=== PATIENT | female | born 1955 | race Caucasian/White ===

== ENCOUNTER → 2016-09-25 | Outpatient (CLI) | payer OTHER ==
[~2016-09-25] MED LIST: ALLE180T33 PO; AMLO2.5T PO; CEVI30CAP PO; CRAN500C2 PO; ELIQ5TAB PO; ISOVUE-370 76% 100ML VIAL (Q9967) As Ordered ONE; MUCI600T34 PO; NEXI40CA PO; OCEA0.654; SING10TA32 PO; TRIA37.5 PO; VITA200015 PO; VITMTA PO
--- NOTE | 2016-09-25 08:53 | REP ---
Chest CT, pulmonary CT angiography, with IV contrast: Comparison is 11/24/2015. On the comparison study there were bilateral central pulmonary emboli extending into the peripheral branches bilaterally. These previous pulmonary emboli have resolved. There are no pulmonary emboli in the central pulmonary arteries or in the lobe or segment branches on the study today. There are no infiltrates, masses or effusions. There is no mediastinal, hilar or axillary lymphadenopathy. The thoracic aorta is unremarkable. Cardiac size is normal. The visualized upper abdominal contents are unremarkable. Impression: Negative CT study of the chest. The previous bilateral pulmonary emboli have resolved. There are no acute infiltrates or effusions. There are no masses. No adenopathy. Signed by Frank Randhawa MD 09/25/2016 08:45 A
== END ==
LOC: M RAD 07:50
PROVIDERS: ATTEND Nurse Practitioner Family
DX: R06.02 Shortness of breath (principal)

== ENCOUNTER → 2016-12-19 | Outpatient (CLI) | payer OTHER ==
[~2016-12-19] MED LIST changes: -ISOVUE-370 76% 100ML VIAL (Q9967) As Ordered ONE; -MUCI600T34 PO; +MUCI600T37 PO
[2016-12-19 16:34] LABS: BASO % 0.8 % (0.0-1.0); EOS # 0.3 K/mm3 (0.0-0.50); LARGE UNSTAINED CELL # 0.1 K/mm3 (0.0-0.4); LARGE UNSTAINED CELL % 1.5 % (0.0-4.0); LYMPH # 1.6 K/mm3 (1.5-4.5); LYMPH % 26.7 % (24.0-44.0); MEAN CORPUSCULAR HEMOGLOBIN 28.5 pg (27.0-33.0); MEAN CORPUSCULAR HGB CONC 32.9 g/dl (32.0-36.5); MEAN CORPUSCULAR VOLUME 86.6 fl (80.0-96.0); MONO # 0.5 K/mm3 (0.0-0.8); MONO % 8.3 % (0.0-5.0); NEUTROPHILS # 3.2 K/mm3 (1.8-7.7); NEUTROPHILS % 56.8 % (36.0-66.0); PLATELET COUNT, AUTOMATED 248 k/mm3 (150-450); RED CELL DISTRIBUTION WIDTH 13.8 % (11.5-14.5); WHITE BLOOD COUNT 5.6 K/mm3 (4.0-10.0)
[2016-12-19 16:40] LABS: ALBUMIN 3.6 GM/DL (3.2-5.2); ALBUMIN/GLOBULIN RATIO 1.03 (1.00-1.93); BILIRUBIN,TOTAL 0.8 MG/DL (0.2-1.0); CALCIUM LEVEL 9.1 MG/DL (8.8-10.2); CREATININE FOR GFR 1.18 MG/DL (0.55-1.02); GLOMERULAR FILTRATION RATE 49.4 (>45); POTASSIUM SERUM 4.3 MEQ/L (3.5-5.1); TOTAL PROTEIN 7.1 GM/DL (6.4-8.2)
[2016-12-19 17:10] LABS: ERYTHROCYTE SEDIMENTATION RATE 25 mm/hr (0-30)
== END ==
LOC: M SMT 10:40
PROVIDERS: ATTEND Internal Medicine Rheumatology
DX: M35.9 Systemic involvement of connective tissue, unspecified (principal); K21.9 Gastro-esophageal reflux disease without esophagitis; M17.0 Bilateral primary osteoarthritis of knee; Z79.899 Other long term (current) drug therapy

== ENCOUNTER 2017-04-08 08:46 | Day surgery (SDC) | payer OTHER ==
[~2017-04-08] VITALS: Ht 165.1 cm; Wt 101.8 kg
[~2017-04-08 08:46] MED LIST changes: +LIDOCAINE 2% INJ 100 MG/5 ML SDV (FOR ANES.) As Ordered ONE; +PROPOFOL 200 MG/20 ML VIAL As Ordered ONE
[2017-04-08] MEDS ORDERED: NS 500 ML IV ONE (09:00)
--- NOTE | 2017-04-08 10:14 | ROOR ---
Patient Name: Mary Lou Delgado Procedure Date: 04/08/2017 10:02 AM Date of : 1955 Age: 61 Room: [facility] Gender: Female Note Status: Finalized Procedure: Upper Endoscopy + Biopsies Indications: Heartburn Providers: Mario Matute MD Referring MD: Santa RAMIRES MD, Avelino Mitchell MD Requesting Provider: Medicines: Monitored Anesthesia Care Complications: No immediate complications. Procedure: Pre-Anesthesia Assessment: - The heart rate, respiratory rate, oxygen saturations, blood pressure, adequacy of pulmonary ventilation, and response to care were monitored throughout the procedure. The Endoscope was introduced through the mouth, and advanced to the second part of duodenum. The upper GI endoscopy was accomplished without difficulty. The patient tolerated the procedure well. Findings: The Z-line was regular and was found 35 cm from the incisors. Multiple biopsies were obtained with cold forceps for evaluation to rule out Whitlock's Esophagus randomly at the gastroesophageal junction. A small hiatal hernia was present. No other significant abnormalities were identified in a careful examination of the stomach. The exam of the duodenum was otherwise normal. Impression: - Z-line regular, 35 cm from the incisors. - Small hiatal hernia. - Multiple biopsies were obtained at the gastroesophageal junction. - The examination was otherwise normal. Recommendation: - Patient has a contact number available for emergencies. The signs and symptoms of potential delayed complications were discussed with the patient. Return to normal activities tomorrow. Written discharge instructions were provided to the patient. - High fiber diet. - Discharge patient to home. - Follow an antireflux regimen. - Continue present medications. - Await pathology results. - Check Portal Online for Path Results.([email or web address] - Telephone GI clinic for pathology results in 1 week. - Return to referring physician. - The findings and recommendations were discussed with the patient's family. Mario Matute MD Mario Matute MD 04/08/2017 10:14:16 AM This report has been signed electronically. Number of Addenda: 0 Note Initiated On: 04/08/2017 10:02 AM Estimated Blood Loss: Estimated blood loss: none.
--- NOTE | 2017-04-08 10:28 | ROOR ---
Patient Name: Mary Lou Delgado Procedure Date: 04/08/2017 10:03 AM Date of : 1955 Age: 61 Room: [id number] Gender: Female Note Status: Finalized Procedure: Total Colonoscopy to Cecum Indications: Screening in patient at increased risk: Colorectal cancer in mother before age 60, Last colonoscopy: 2011 Providers: Mario Matute MD Referring MD: Santa RAMIRES MD Requesting Provider: Avelino Mitchell MD Medicines: Monitored Anesthesia Care Complications: No immediate complications. Procedure: Pre-Anesthesia Assessment: - The heart rate, respiratory rate, oxygen saturations, blood pressure, adequacy of pulmonary ventilation, and response to care were monitored throughout the procedure. The Colonoscope was introduced through the anus and advanced to the cecum, identified by appendiceal orifice and ileocecal valve. The colonoscopy was performed without difficulty. The patient tolerated the procedure well. The quality of the bowel preparation was excellent. Findings: The perianal and digital rectal examinations were normal. Non-bleeding internal hemorrhoids were found during retroflexion. The hemorrhoids were small and Grade I (internal hemorrhoids that do not prolapse). No other significant abnormalities were identified in a careful examination of the remainder of the colon. The exam was otherwise without abnormality on direct and retroflexion views. Impression: - Non-bleeding internal hemorrhoids. - The examination was otherwise normal on direct and retroflexion views. - No specimens collected. - The exam was otherwise normal to the cecum. Recommendation: - Patient has a contact number available for emergencies. The signs and symptoms of potential delayed complications were discussed with the patient. Return to normal activities tomorrow. Written discharge instructions were provided to the patient. - High fiber diet. - Discharge patient to home. - Continue present medications. - Repeat colonoscopy in 5 years for screening purposes. - Return to referring physician. - The findings and recommendations were discussed with the patient's family. Mario Matute MD Mario Matute MD 04/08/2017 10:28:18 AM This report has been signed electronically. Number of Addenda: 0 Note Initiated On: 04/08/2017 10:03 AM Estimated Blood Loss: Estimated blood loss: none.
[2017-04-08 10:58] VITALS: BP 132/73
== END 2017-04-08 11:01 | disposition home or self-care (01) ==
LOC: M OPP 08:46 → EDSTATUS 10:00 → M OPP 11:01
PROVIDERS: ATTEND Internal Medicine Gastroenterology
DX: Z12.11 Encounter for screening for malignant neoplasm of colon (principal); Z80.0 Family history of malignant neoplasm of digestive organs; K64.0 First degree hemorrhoids; R12 Heartburn; K44.9 Diaphragmatic hernia without obstruction or gangrene; K21.9 Gastro-esophageal reflux disease without esophagitis; I12.9 Hypertensive chronic kidney disease with stage 1 through stage 4 chronic kidney disease, or unspecified chronic kidney disease; J45.909 Unspecified asthma, uncomplicated; M19.90 Unspecified osteoarthritis, unspecified site; F32.9 Major depressive disorder, single episode, unspecified; I73.00 Raynaud's syndrome without gangrene; Z78.0 Asymptomatic menopausal state; R06.83 Snoring; N18.9 Chronic kidney disease, unspecified; Z91.018 Allergy to other foods; Z79.899 Other long term (current) drug therapy; Z80.3 Family history of malignant neoplasm of breast; Z83.71 Family history of colonic polyps

== ENCOUNTER → 2018-05-25 | Outpatient (REF) | payer OTHER ==
[2018-05-25 17:27] LABS: LIPASE 98 U/L (73-393)
[2018-05-25 17:27] LABS: AMYLASE 33 U/L (25-115)
== END ==
LOC: M LAB REF 16:49
DX: R10.11 Right upper quadrant pain (principal)
CPT/HCPCS: 82150

== ENCOUNTER → 2018-08-12 | Outpatient (CLI) | payer OTHER ==
[~2018-08-12] MED LIST changes: -AMLO2.5T PO; +AMLO2.5T3 PO; -LIDOCAINE 2% INJ 100 MG/5 ML SDV (FOR ANES.) As Ordered ONE; -PROPOFOL 200 MG/20 ML VIAL As Ordered ONE
--- NOTE | 2018-08-12 17:15 | REP ---
BILIARY SCAN WITH GALLBLADDER EJECTION FRACTION: 08/12/2018. Clinical history: Right upper quadrant pain. Nausea, vomiting and diarrhea. Pain after fatty meal. Technique: The patient received 6.6 mCi technetium 99m mebrofenin with sequential 5-minute images anteriorly for the liver for 1 hour. Thereafter the patient consumed 8 ounces of Ensure just prior to a second set of 60-minute imaging beginning 65 minutes post tracer injection. Region of interest drawn around the gallbladder and ejection fraction calculated by a semi automated method. Findings: Tracer distribution is homogeneous with activity first seen in the gallbladder fossa and common duct and 15 minutes. Progressive increase in activity in the gallbladder fossa and good washout of activity from the liver noted. Activity first seen in the small bowel loops of 55 minutes. Gallbladder ejection fraction is calculated at 28% for 1 hour. Impression: 1. Prompt homogeneous tracer enhancement with normal washout of activity from the liver, prompt and progressive filling of the gallbladder and activity reaching the small bowel by 55 minutes. 2. Gallbladder ejection fraction calculated at 28% for 1 hour. The normal range with this technique is greater than 35% indicating that there is biliary hypokinesia. Electronically Signed by Jayme Marte MD 08/12/2018 07:39 P
== END ==
LOC: M RAD 08:57
PROVIDERS: ATTEND Internal Medicine Gastroenterology
DX: R10.11 Right upper quadrant pain (principal)
CPT/HCPCS: 78227; A9537; J2805

== ENCOUNTER → 2018-11-12 | Outpatient (REF) | payer OTHER ==
[2018-11-12 14:33] LABS: BASO # 0.1 10^3/uL (0.0-0.2); BASO % 1.2 % (0.0-1.0); EOS # 0.4 10^3/uL (0.0-0.50); EOS % 6.7 % (0.0-3.0); HEMATOCRIT 40.2 % (36.0-47.0); HEMOGLOBIN 12.6 g/dl (12.0-15.5); LYMPH # 1.3 10^3/uL (1.5-4.5); LYMPH % 25.2 % (24.0-44.0); MEAN CORPUSCULAR HGB CONC 31.3 g/dl (32.0-36.5); MEAN CORPUSCULAR VOLUME 86.1 fl (80.0-96.0); MONO # 0.6 10^3/uL (0.0-0.8); MONO % 11.2 % (0.0-5.0); NEUTROPHILS # 2.9 10^3/uL (1.8-7.7); NEUTROPHILS % 55.5 % (36.0-66.0); PLATELET COUNT, AUTOMATED 307 10^3/uL (150-450); RED BLOOD COUNT 4.67 10^6/uL (4.00-5.40); WHITE BLOOD COUNT 5.2 10^3/uL (4.0-10.0)
== END ==
LOC: M LAB REF 14:11
PROVIDERS: ATTEND Internal Medicine Nephrology
DX: N18.3 Chronic kidney disease, stage 3 (moderate) (principal)

== ENCOUNTER 2019-02-15 23:14 | Emergency (ER) | payer OTHER ==
[~2019-02-15] VITALS: Ht 165.1 cm; Wt 90.0 kg
[2019-02-15] MEDS ORDERED: ASPIRIN 81 MG CHEW TABLET PO ONE (23:45)
[2019-02-15] MEDS ORDERED: GI COCKTAIL 50ML BTL(HYOSCYAMINE/MAALOX/LIDOCAINE VISCOUS)(1:3:1) PO ONE (23:45)
[2019-02-15] MEDS ORDERED: NS 500 ML IV ONE (23:45)
[2019-02-16 00:23] LABS: BASO # 0.1 10^3/uL (0.0-0.2); EOS # 0.5 10^3/uL (0.0-0.50); EOS % 6.6 % (0.0-3.0); HEMATOCRIT 38.3 % (36.0-47.0); HEMOGLOBIN 12.3 g/dl (12.0-15.5); LYMPH # 1.9 10^3/uL (1.5-4.5); LYMPH % 26.8 % (24.0-44.0); MEAN CORPUSCULAR HEMOGLOBIN 27.6 pg (27.0-33.0); MEAN CORPUSCULAR HGB CONC 32.1 g/dl (32.0-36.5); MEAN CORPUSCULAR VOLUME 86.1 fl (80.0-96.0); MONO # 0.8 10^3/uL (0.0-0.8); MONO % 10.8 % (0.0-5.0); NEUTROPHILS # 3.8 10^3/uL (1.8-7.7); NEUTROPHILS % 54.5 % (36.0-66.0); PLATELET COUNT, AUTOMATED 270 10^3/uL (150-450); RED BLOOD COUNT 4.45 10^6/uL (4.00-5.40); WHITE BLOOD COUNT 6.9 10^3/uL (4.0-10.0)
[2019-02-16 00:27] LABS: INR 1.34; PROTHROMBIN TIME 16.3 SECONDS (11.8-14.0)
[2019-02-16 00:28] LABS: PARTIAL THROMBOPLASTIN TIME 33.9 SECONDS (25.0-38.4)
[2019-02-16 00:43] LABS: BLOOD UREA NITROGEN 21 MG/DL (7-18); CALCIUM LEVEL 8.9 MG/DL (8.8-10.2); CARBON DIOXIDE LEVEL 26 MEQ/L (21-32); CHLORIDE LEVEL 110 MEQ/L (98-107); CK-MB VALUE MASS < 1.0 NG/ML (<3.6); CPK CREATINE PHOSPHOKINASE 94 U/L (26-192); CREATININE FOR GFR 1.01 MG/DL (0.55-1.30); GLOMERULAR FILTRATION RATE 58.7 (>45); GLUCOSE, FASTING 102 MG/DL (70-100); MB/CK RELATIVE INDEX 1.06 (< OR =4); POTASSIUM SERUM 4.1 MEQ/L (3.5-5.1); SODIUM LEVEL 143 MEQ/L (136-145); TROPONIN I < 0.02 NG/ML (< 0.10)
[2019-02-16 02:19] VITALS: BP 127/66
--- NOTE | 2019-02-16 05:43 | ECGEPIP ---
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
--- NOTE | 2019-02-16 11:56 | REP ---
Clinical: Acute chest pain . Comparison: 05/13/2016 . Findings: The mediastinum and cardiac silhouette are stable and within normal limits for portable technique. The lung rubio are clear without acute consolidation, effusion, or pneumothorax. Skeletal structures are intact. Impression: No acute cardiopulmonary process appreciated. Electronically Signed by hBanu Tomlinson MD 02/16/2019 02:07 A
== END 2019-02-16 02:25 | disposition home or self-care (01) ==
LOC: M ED 23:14
DX: K21.9 Gastro-esophageal reflux disease without esophagitis (principal); K92.9 Disease of digestive system, unspecified; N18.3 Chronic kidney disease, stage 3 (moderate); Z86.711 Personal history of pulmonary embolism; Z88.2 Allergy status to sulfonamides; Z91.018 Allergy to other foods; Z79.899 Other long term (current) drug therapy; Z79.01 Long term (current) use of anticoagulants

== ENCOUNTER → 2019-05-23 | Outpatient (REF) | payer OTHER ==
[2019-05-23 14:16] LABS: PERCENT SATURATION 4.9 % (13.2-45.0)
[2019-05-23 14:26] LABS: FOLATE 6.3 NG/ML
== END ==
LOC: M LAB REF 13:28
PROVIDERS: ATTEND Internal Medicine Nephrology
DX: D64.9 Anemia, unspecified (principal)

== ENCOUNTER 2020-09-12 01:44 | Emergency (ER) | payer OTHER ==
[~2020-09-12] VITALS: Ht 165.1 cm; Wt 103.1 kg
[2020-09-12 03:47] LABS: BASO # 0.1 10^3/uL (0.0-0.2); BASO % 0.6 % (0.0-1.0); EOS % 10.6 % (0.0-3.0); HEMATOCRIT 41.3 % (36.0-47.0); HEMOGLOBIN 13.5 g/dl (12.0-15.5); LYMPH # 2.5 10^3/uL (1.5-5.0); LYMPH % 26.5 % (24.0-44.0); MEAN CORPUSCULAR HEMOGLOBIN 29.3 pg (27.0-33.0); MEAN CORPUSCULAR HGB CONC 32.7 g/dl (32.0-36.5); MEAN CORPUSCULAR VOLUME 89.8 fl (80.0-96.0); MONO % 10.5 % (2.0-8.0); NEUTROPHILS # 4.8 10^3/uL (1.5-8.5); NEUTROPHILS % 51.5 % (36.0-66.0); PLATELET COUNT, AUTOMATED 324 10^3/uL (150-450); WHITE BLOOD COUNT 9.4 10^3/uL (4.0-10.0)
[2020-09-12 03:48] LABS: CALCIUM LEVEL 8.6 MG/DL (8.8-10.2); CREATININE FOR GFR 1.04 MG/DL (0.55-1.30); GLOMERULAR FILTRATION RATE 56.4 (>45); POTASSIUM SERUM 3.7 MEQ/L (3.5-5.1)
[2020-09-12] MEDS ORDERED: ASPIRIN 81 MG CHEW TABLET PO ONE (03:50)
[2020-09-12 04:25] LABS: CK-MB VALUE MASS 1.9 NG/ML (<3.6); MB/CK RELATIVE INDEX 1.67 (< OR =4)
--- NOTE | 2020-09-12 04:50 | REPVR ---
PROCEDURE INFORMATION: Exam: XR Chest Exam date and time: 09/12/2020 3:43 AM Age: 65 years old Clinical indication: Chest pain; Type not specified TECHNIQUE: Imaging protocol: XR of the chest Views: 1 view. COMPARISON: CR PORTABLE CHEST X-RAY 02/15/2019 11:49 PM FINDINGS: Lungs: Unremarkable. No consolidation. Pleural spaces: Unremarkable. No pleural effusion. No pneumothorax. Heart/Mediastinum: Unremarkable. No cardiomegaly. Bones/joints: Unremarkable. IMPRESSION: No acute findings. A Electronically signed by: Bubba Alvarado On 09/12/2020 04:49:47 AM
[2020-09-12 06:31] VITALS: BP 149/70
--- NOTE | 2020-09-12 08:05 | ECGEPIP ---
[facility] - ED Test Date: 2020-09-12 Pat Name: IAN PARKS Department: Room: - Gender: Female Director Building: [place] : 1955 Requested By: BRIT Seaman Order Number: [id number] Reading MD: Vinayak Garay Measurements Intervals [place] Rate: 73 P: 65 SD: 144 QRS: 14 QRSD: 74 T: 39 QT: 426 QTc: 469 Interpretive Statements Normal sinus rhythm with sinus arrhythmia POOR R WAVE PROGRESSION SIMILAR TO 02/15/19 Electronically Signed on 09-12-2020 8:04:58 EDT by Vinayak Garay
--- NOTE | 2020-09-12 08:08 | ECGEPIP ---
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
== END 2020-09-12 06:56 | disposition home or self-care (01) ==
LOC: M ED 01:44
DX: R07.9 Chest pain, unspecified (principal); I25.10 Atherosclerotic heart disease of native coronary artery without angina pectoris; Z79.899 Other long term (current) drug therapy; Z79.01 Long term (current) use of anticoagulants; Z88.2 Allergy status to sulfonamides; Z88.8 Allergy status to other drugs, medicaments and biological substances; Z91.018 Allergy to other foods

== ENCOUNTER → 2021-05-10 | Outpatient (CLI) | payer MEDICARE, OTHER ==
--- NOTE | 2021-05-10 14:22 | REPMRS ---
Patient History The patient states she had a clinical breast exam in February 2021. Patient is postmenopausal and is nulliparous. Family history of breast cancer at age 45 and colorectal cancer at age 53 in mother, breast cancer at age 45 in maternal aunt, breast cancer at age 70 in maternal aunt, colorectal cancer at age 72 in maternal aunt, colorectal cancer at age 77 in sister. Benign excisional biopsy of the left breast, 1994. Took hormonal contraceptives for 2 years. Patient states no breast complaints today. Patient has signed MRS History Sheet. Digital Woman Screen Mammo: May 10, 2021 - Exam #: [id number] Bilateral CC and MLO view(s) were taken. Technologist: Karlee Lincoln, Technologist Prior study comparison: April 18, 2014, bilateral bilat screen digital mammo, performed at [facility] ([facility]). April 15, 2013, bilateral bilat screen digital mammo, performed at [facility] ([facility]). FINDINGS: There are scattered fibroglandular densities. Screening. Digital screening (2D) mammography was performed bilaterally in the CC and MLO projections. Additionally, breast tomosynthesis (3D mammography) was performed bilaterally in the CC and MLO projections. Todays exam was compared to the prior exam/exams. By history, the patient has no complaints of a palpable breast abnormality or other significant breast complaints. The Volpara volumetric breast density category is B, there are scattered areas of fibroglandular densities. The breasts are unchanged in size and shape. There are no dameon-soft tissue densities or spiculated masses. There is no internal architectural distortion. There are no suspicious dameon-calcific clusters. Skin thickening or nipple retraction is not present. IMPRESSION: BI-RADS Category 2- Benign Findings. There is no evidence of malignant alteration of the breasts. Followup examination recommended in one year. The lifetime Tyrer-Cuzick score is 19.4% This mammogram was read with the assistance of [employer],an FDA approved computer aided detection system for mammography. Negative x-ray reports should not delay surgical consultation if a dominant or clinically suspicious mass is present. Not all breast cancers can be identified by mammography. Therefore, we recommend that you continue to perform regular breast self-examination and physical examination and then promptly contact your physician of any concerns or changes. Adenosis and dense breasts may obscure an underlying neoplasm. No significant changes when compared with prior studies. Assessment: BI-RADS/ACR category 2 mammogram. Benign Findings. Recommendation Routine screening mammogram of both breasts in 1 year. Electronically Signed By: Leland Pan MD 05/10/21 [id number]
--- NOTE | 2021-05-13 14:57 | DEXAMM ---
INDICATION: SCREENING FOR OSTEOPOROSIS. COMPARISON: 02/02/2018, 03/15/2008. TECHNIQUE: Bone density was measured using dual-energy x-ray absorptiometry (DEXA). FINDINGS: AP SPINE L1-L4 BMD 1.088 g/cm2 Young Adult T-Score -0.9 Age Matched Z-Score 0.8. LT FEMUR, TOTAL BMD 0.789 g/cm2 Young Adult T-Score -1.7 Age Matched Z-Score -0.4. LT NECK BMD 0.762 g/cm2 Young Adult T-Score -2.0 Age Matched Z-Score -0.4. RT FEMUR, TOTAL BMD 0.770 g/cm2 Young Adult T-Score -1.9 Age Matched Z-Score -0.6. RT NECK BMD 0.818 g/cm2 Young Adult T-Score -1.6 Age Matched Z-Score 0.0. IMPRESSION: There is normal bone density of the spine. There is low bone density of the left hip. There is low bone density of the right hip. The density of the spine has increased 2.0% since the initial exam on 03/15/2008. The density of the spine increased 2.8% since most recent exam on 02/02/2018. The density of the left hip has decreased 15.5% since initial exam on 03/15/2008. The density of the left hip has decreased 3.8% since most recent exam on 02/02/2018. The density of the right hip has decreased 16.3% since the initial exam on 03/15/2008. The density of the right hip has decreased 4.5% since the most recent exam on 02/02/2018. FOLLOW-UP: Recommendation for the next bone density exam: 2 years. <Electronically signed by Frank Reyes > 05/13/21 [id number]
== END ==
LOC: M WHC 12:24
PROVIDERS: ATTEND Registered Nurse
DX: Z12.31 Encounter for screening mammogram for malignant neoplasm of breast (principal); Z13.820 Encounter for screening for osteoporosis; Z78.0 Asymptomatic menopausal state; Z80.3 Family history of malignant neoplasm of breast; M85.89 Other specified disorders of bone density and structure, multiple sites

== ENCOUNTER → 2021-05-23 | Outpatient (REF) | payer MEDICARE, OTHER | LOC: M LAB REF 13:42 | PROVIDERS: ATTEND Nurse Practitioner Family | DX: E83.42 Hypomagnesemia (principal) ==

== ENCOUNTER → 2021-08-13 | Outpatient (CLI) | payer MEDICARE, OTHER | LOC: M RAD 09:39 | PROVIDERS: ATTEND Surgery | DX: R10.11 Right upper quadrant pain (principal) ==

== ENCOUNTER → 2021-09-13 | Outpatient (CLI) | payer MEDICARE, OTHER | LOC: M RAD 13:07 | PROVIDERS: ATTEND Registered Nurse | DX: R05.9 Cough, unspecified (principal) ==

== ENCOUNTER → 2021-12-02 | Outpatient (CLI) | payer MEDICARE, OTHER ==
[~2021-12-02] MED LIST changes: +PROHANCE 279.3MG/ML 5ML VIAL As Ordered ONE
== END ==
LOC: M RAD 12:46
PROVIDERS: ATTEND Registered Nurse
DX: Z80.3 Family history of malignant neoplasm of breast (principal)
CPT/HCPCS: A9576; C8908

== ENCOUNTER → 2022-06-04 | Outpatient (CLI) | payer MEDICARE, OTHER ==
[~2022-06-04] MED LIST changes: +CEVI30CA6 PO; -CEVI30CAP PO; -PROHANCE 279.3MG/ML 5ML VIAL As Ordered ONE
== END ==
LOC: M WHC 15:56
PROVIDERS: ATTEND Registered Nurse
DX: Z12.31 Encounter for screening mammogram for malignant neoplasm of breast (principal)

== ENCOUNTER → 2022-07-30 | Outpatient (CLI) | payer MEDICARE, OTHER ==
[~2022-07-30] MED LIST changes: +ALBU8.5H; +AMLO1TAB24; +ARNU1INH; +AZEL23SP; +CVS500CA5 PO; +ESOM40CA35; +FAMO10TA53 PO; +FERR32TA; +MONT10TA97; +MUCI600T31 PO; +SLOWTAB2 PO; +STEL90IN; +VITA100093 PO
== END ==
LOC: M LABSMTC 09:31
PROVIDERS: ATTEND Anesthesiology
DX: Z01.812 Encounter for preprocedural laboratory examination (principal); Z11.52 Encounter for screening for COVID-19

== ENCOUNTER 2022-08-04 07:00 | Day surgery (SDC) | payer MEDICARE, OTHER ==
[~2022-08-04] VITALS: Ht 165.1 cm; Wt 98.8 kg
[~2022-08-04 07:00] MED LIST changes: +NS 1,000 ML IV ONE
[2022-08-04] MEDS ORDERED: LIDOCAINE 2% 100MG/5ML SDV (FOR ANES.) As Ordered ONE (07:02)
[2022-08-04] MEDS ORDERED: propofoL 200 MG/20 ML VIAL As Ordered ONE ×2 (07:02→07:39)
[2022-08-04 08:20] VITALS: BP 133/65
== END 2022-08-04 08:31 | disposition home or self-care (01) ==
LOC: M OPP 07:00
PROVIDERS: ATTEND Internal Medicine Gastroenterology
DX: Z12.11 Encounter for screening for malignant neoplasm of colon (principal); Z86.010 Personal history of colon polyps; Z80.0 Family history of malignant neoplasm of digestive organs; K63.5 Polyp of colon; K64.0 First degree hemorrhoids; K57.30 Diverticulosis of large intestine without perforation or abscess without bleeding; K31.89 Other diseases of stomach and duodenum; K29.50 Unspecified chronic gastritis without bleeding; I73.00 Raynaud's syndrome without gangrene; J45.909 Unspecified asthma, uncomplicated; N18.9 Chronic kidney disease, unspecified; Z79.899 Other long term (current) drug therapy; Z88.1 Allergy status to other antibiotic agents; Z88.2 Allergy status to sulfonamides; Z91.018 Allergy to other foods; Z86.711 Personal history of pulmonary embolism

== ENCOUNTER → 2022-09-11 | Outpatient (CLI) | payer MEDICARE, OTHER ==
[~2022-09-11] MED LIST changes: +MONT-5 PO; -NS 1,000 ML IV ONE; -SING10TA32 PO
== END ==
LOC: M RAD 15:41
PROVIDERS: ATTEND Physician Assistant
DX: R06.02 Shortness of breath (principal)

== ENCOUNTER → 2022-12-09 | Outpatient (CLI) | payer MEDICARE, OTHER ==
[~2022-12-09] MED LIST changes: +PROHANCE 279.3MG/ML 5ML VIAL ONE
== END ==
LOC: M PLAIMG 12:12
PROVIDERS: ATTEND Internal Medicine
DX: D24.2 Benign neoplasm of left breast (principal); Z80.3 Family history of malignant neoplasm of breast
CPT/HCPCS: A9576; C8908

== ENCOUNTER → 2023-06-08 | Outpatient (CLI) | payer MEDICARE, OTHER ==
[~2023-06-08] MED LIST changes: -PROHANCE 279.3MG/ML 5ML VIAL ONE
== END ==
LOC: M WHC 12:38
PROVIDERS: ATTEND Internal Medicine
DX: Z12.31 Encounter for screening mammogram for malignant neoplasm of breast (principal); M85.851 Other specified disorders of bone density and structure, right thigh

== ENCOUNTER → 2023-06-29 | Outpatient (REF) | payer MEDICARE, OTHER ==
[2023-06-29 19:29] LABS: FERRITIN 7.2 NG/ML (7.3-270.7)
== END ==
LOC: M LAB REF 16:31
PROVIDERS: ATTEND Internal Medicine
DX: N18.30 Chronic kidney disease, stage 3 unspecified (principal); M85.80 Other specified disorders of bone density and structure, unspecified site

== ENCOUNTER → 2023-07-22 | Outpatient (CLI) | payer MEDICARE, OTHER | LOC: M PLAIMG 10:45 | PROVIDERS: ATTEND Otolaryngology | DX: J32.9 Chronic sinusitis, unspecified (principal) ==

== ENCOUNTER → 2023-10-02 | Outpatient (REF) | payer MEDICARE, OTHER | LOC: M LAB REF 16:44 | PROVIDERS: ATTEND Internal Medicine | DX: D50.9 Iron deficiency anemia, unspecified (principal) ==

== ENCOUNTER → 2023-11-24 | Outpatient (REF) | payer MEDICARE, OTHER ==
[~2023-11-24] MED LIST changes: +CRAN500C11 PO; -CVS500CA5 PO
[2023-11-24 19:24] LABS: PERCENT SATURATION 12.5 % (13.2-45.0)
== END ==
LOC: M LAB REF 17:48
PROVIDERS: ATTEND Nurse Practitioner Family
DX: D50.9 Iron deficiency anemia, unspecified (principal)

== ENCOUNTER → 2023-12-11 | Outpatient (CLI) | payer MEDICARE, OTHER | LOC: M RAD 08:57 | PROVIDERS: ATTEND Internal Medicine | DX: M85.88 Other specified disorders of bone density and structure, other site (principal); M51.36 Other intervertebral disc degeneration, lumbar region ==

== ENCOUNTER → 2024-03-15 | Outpatient (REF) | payer MEDICARE, OTHER | LOC: M LAB REF 13:03 | PROVIDERS: ATTEND Internal Medicine | DX: N18.30 Chronic kidney disease, stage 3 unspecified (principal); D50.9 Iron deficiency anemia, unspecified ==

== ENCOUNTER → 2024-04-13 | Outpatient (CLI) | payer MEDICARE, OTHER ==
[~2024-04-13] MED LIST changes: -CRAN500C11 PO; +CVS500CA5 PO; +E-Z-GAS II EFFERVESCENT PACKET (SODIUM BICARB./CITRIC ACID/SIMETHICONE) As Ordered ONE; +E-Z-HD 98% w/w 340GM SUSP BTL As Ordered ONE; +E-Z-PAQUE 96% w/w SUSP 176GM BTL As Ordered ONE
== END ==
LOC: M RAD 09:09
PROVIDERS: ATTEND Internal Medicine
DX: R13.10 Dysphagia, unspecified (principal); Q40.8 Other specified congenital malformations of upper alimentary tract; K21.9 Gastro-esophageal reflux disease without esophagitis

== ENCOUNTER → 2024-06-10 | Outpatient (CLI) | payer MEDICARE, OTHER ==
[~2024-06-10] MED LIST changes: -E-Z-GAS II EFFERVESCENT PACKET (SODIUM BICARB./CITRIC ACID/SIMETHICONE) As Ordered ONE; -E-Z-HD 98% w/w 340GM SUSP BTL As Ordered ONE; -E-Z-PAQUE 96% w/w SUSP 176GM BTL As Ordered ONE
== END ==
LOC: M WHC 12:52
PROVIDERS: ATTEND Internal Medicine
DX: Z12.31 Encounter for screening mammogram for malignant neoplasm of breast (principal); R92.323 Mammographic fibroglandular density, bilateral breasts

== ENCOUNTER → 2024-09-16 | Outpatient (REF) | payer MEDICARE, OTHER ==
[2024-09-16 15:19] LABS: C REACTIVE PROTEIN QUANTITATIV 2.98 MG/DL (<1.0); RHEUMATOID FACTOR QUANT < 3.5 IU/ML (<14)
[2024-09-16 15:21] LABS: URIC ACID 6.6 MG/DL (3.1-7.8)
[2024-09-19 14:36] LABS: SSA SJOGRENS A <1.0 NEG AI (<1.0 NEG); SSB SJOGRENS B <1.0 NEG AI (<1.0 NEG)
[2024-09-20 07:19] LABS: ANA PATTERN Nuclear, Centromere (NEGATIVE); ANA SCREEN, IFA POSITIVE (NEGATIVE); ANA TITER > OR = 1:1280 titer (<1:40)
== END ==
LOC: M LAB REF 14:34
PROVIDERS: ATTEND Internal Medicine
DX: I73.00 Raynaud's syndrome without gangrene (principal)

== ENCOUNTER → 2024-10-19 | Outpatient (CLI) | payer MEDICARE, OTHER | LOC: M RAD 11:42 | PROVIDERS: ATTEND Nurse Practitioner Family | DX: N18.31 Chronic kidney disease, stage 3a (principal) ==

== ENCOUNTER → 2025-03-30 | Outpatient (REF) | payer MEDICARE, OTHER ==
[~2025-03-30] MED LIST changes: +SLOW1TAB3 PO; -SLOWTAB2 PO
[2025-03-30 18:03] LABS: COMPLEMENT C4 36.9 MG/DL (12-36)
[2025-03-30 18:04] LABS: ALT/SGPT 27.0 U/L (7.0-40); AST/SGOT 25.0 U/L (<34); C REACTIVE PROTEIN QUANTITATIV 1.88 MG/DL (<1.0); CALCIUM LEVEL 9.4 MG/DL (8.3-10.6); CARBON DIOXIDE LEVEL 25.0 MMOL/L (20-31); CHLORIDE LEVEL 108.0 MMOL/L (98-107); CREATININE FOR GFR 0.97 MG/DL (0.55-1.30); GLOMERULAR FILTRATION RATE 62.9 (>39); POTASSIUM SERUM 4.0 MMOL/L (3.5-5.1); SODIUM LEVEL 142.0 MMOL/L (136-145)
[2025-03-30 18:18] LABS: BASO # 0.1 10^3/uL (0.0-0.2); BASO % 0.8 % (0.0-1.0); EOS # 0.6 10^3/uL (0.0-0.5); EOS % 7.2 % (0.0-3.0); LYMPH # 2.3 10^3/uL (1.5-5.0); LYMPH % 26.0 % (24.0-44.0); MONO # 0.7 10^3/uL (0.0-0.8); MONO % 7.6 % (2.0-8.0); NEUTROPHILS # 5.2 10^3/uL (1.5-8.5); NEUTROPHILS % 58.2 % (36.0-66.0); PLATELET COUNT, AUTOMATED 320 10^3/uL (150-450)
[2025-03-30 18:18] LABS: TOTAL PROTEIN,RANDOM URINE 11.4 MG/DL (0.0-14.0)
[2025-03-30 18:34] LABS: APPEARANCE, URINE CLOUDY (CLEAR); BACTERIA, URINE AUTO NEGATIVE (NEGATIVE); BILIRUBIN, URINE AUTO NEGATIVE (NEGATIVE); BLOOD, URINE BLOOD NEGATIVE (NEGATIVE); GLUCOSE, URINE (UA) AUTO NEGATIVE (NEGATIVE); KETONE, URINE AUTO NEGATIVE (NEGATIVE); LEUKOCYTE ESTERASE, URINE AUTO NEGATIVE (NEGATIVE); MUCUS, URINE SMALL (NEGATIVE); NITRITE, URINE AUTO NEGATIVE (NEGATIVE); PROTEIN, URINE AUTO NEGATIVE (NEGATIVE); RBC, URINE AUTO 0 /HPF (0-3); SPECIFIC GRAVITY URINE AUTO 1.016 (1.002-1.035); SQUAMOUS EPITHELIAL CELL UR AU 0 /HPF (0-6); UROBILINOGEN, URINE AUTO 0.2 mg/dL (0.0-2.0); WBC, URINE AUTO 1 /HPF (0-3)
[2025-03-30 18:53] LABS: ERYTHROCYTE SEDIMENTATION RATE 54 mm/hr (0-30)
== END ==
LOC: M SFHCRHEU 14:36
PROVIDERS: ATTEND Internal Medicine Rheumatology
DX: R76.89 Other specified abnormal immunological findings in serum (principal); I73.00 Raynaud's syndrome without gangrene; M35.00 Sjogren syndrome, unspecified; R21 Rash and other nonspecific skin eruption; R05.3 Chronic cough; R52 Pain, unspecified

== ENCOUNTER → 2025-03-31 | Outpatient (CLI) | payer MEDICARE, OTHER | LOC: M RAD 10:47 | PROVIDERS: ATTEND Internal Medicine | DX: R10.11 Right upper quadrant pain (principal) ==

== ENCOUNTER → 2025-03-31 | Outpatient (CLI) | payer MEDICARE, OTHER | LOC: M RAD 10:49 | PROVIDERS: ATTEND Internal Medicine Rheumatology | DX: I73.00 Raynaud's syndrome without gangrene (principal); R21 Rash and other nonspecific skin eruption; R05.3 Chronic cough; R76.89 Other specified abnormal immunological findings in serum; M35.00 Sjogren syndrome, unspecified; M85.841 Other specified disorders of bone density and structure, right hand; M85.842 Other specified disorders of bone density and structure, left hand; R10.11 Right upper quadrant pain ==

== ENCOUNTER 2025-05-23 13:15 | Emergency (ER) | payer MEDICARE, OTHER ==
[~2025-05-23] VITALS: Ht 165.1 cm; Wt 107.4 kg
[2025-05-23] MEDS ORDERED: ISOVUE-370 76% 100 ML VIAL As Ordered ONE (14:29)
[2025-05-23 14:32] LABS: BASO # 0.1 10^3/uL (0.0-0.2); BASO % 0.7 % (0.0-1.0); EOS # 0.6 10^3/uL (0.0-0.5); EOS % 6.4 % (0.0-3.0); LYMPH # 1.7 10^3/uL (1.5-5.0); LYMPH % 17.8 % (24.0-44.0); MONO # 0.8 10^3/uL (0.0-0.8); MONO % 8.2 % (2.0-8.0); NEUTROPHILS # 6.5 10^3/uL (1.5-8.5); NEUTROPHILS % 66.3 % (36.0-66.0); PLATELET COUNT, AUTOMATED 273 10^3/uL (150-450)
[2025-05-23 14:57] LABS: CALCIUM LEVEL 9.1 MG/DL (8.3-10.6); CARBON DIOXIDE LEVEL 24.0 MMOL/L (20-31); CHLORIDE LEVEL 108.0 MMOL/L (98-107); CREATININE FOR GFR 0.92 MG/DL (0.55-1.30); GLOMERULAR FILTRATION RATE 67.0 (>39); POTASSIUM SERUM 4.2 MMOL/L (3.5-5.1); SODIUM LEVEL 144.0 MMOL/L (136-145)
[2025-05-23 15:15] LABS: INR 1.43
[2025-05-23 16:15] VITALS: O2SAT 98
[2025-05-23 16:31] VITALS: BP 155/73; TEMP 98.2
== END 2025-05-23 16:38 | disposition home or self-care (01) ==
LOC: M ED 13:15
DX: S09.90XA Unspecified injury of head, initial encounter (principal); S40.012A Contusion of left shoulder, initial encounter; W11.XXXA Fall on and from ladder, initial encounter; Y92.9 Unspecified place or not applicable; Y93.89 Activity, other specified; Y99.9 Unspecified external cause status; K21.9 Gastro-esophageal reflux disease without esophagitis; J45.909 Unspecified asthma, uncomplicated; I10 Essential (primary) hypertension; L40.9 Psoriasis, unspecified; I73.00 Raynaud's syndrome without gangrene; M48.00 Spinal stenosis, site unspecified; Z86.711 Personal history of pulmonary embolism; M43.16 Spondylolisthesis, lumbar region; M43.12 Spondylolisthesis, cervical region; Z79.899 Other long term (current) drug therapy; Z88.2 Allergy status to sulfonamides; Z91.018 Allergy to other foods
CPT/HCPCS: 70450; 71260; 72125; 72128; 72131; 73030; 73060; 73080; 73090; 74177; 80047; 80048; 83690; 85025; 85610; 85730; 93041; 94760; 99284; Q9967

== ENCOUNTER → 2025-06-12 | Outpatient (CLI) | payer MEDICARE, OTHER | LOC: M WHC 10:54 | PROVIDERS: ATTEND Internal Medicine | DX: M81.0 Age-related osteoporosis without current pathological fracture (principal); Z12.31 Encounter for screening mammogram for malignant neoplasm of breast ==